=== PATIENT | male | born 1945 | race Caucasian/White ===

== ENCOUNTER 2016-09-14 22:21 | Emergency (ER) | payer MEDICARE, MEDICAID ==
[2016-09-14] MEDS ORDERED: NORMAL SALINE 1,000 ML IV ONE (23:07)
[2016-09-14] MEDS ORDERED: KETOROLAC TROMETHAMINE 30 MG/ML VIAL IV ONE (23:07)
--- NOTE | 2016-09-14 23:10 | ERNOTE ---
ER Male HPI Date of Service: 09/14/16 Stated Complaint: KIDNEY STONES Time Seen by Provider: 09/14/16 23:04 Source: patient Immunizations: IMMUNIZATION HX Immunizations Up to Date Yes Allergies/Adverse Reactions: Allergies tamsulosin HCl [From Flomax] Adverse Reaction (Intermediate, Verified 09/14/16 22:30) n/v, passes out Home Medications: HOME MEDICATIONS Doxazosin Mesylate 2 mg PO DAILY 03/24/13 [Last Taken 05/04/13] Finasteride [Proscar] 5 mg PO DAILY 03/24/13 [Last Taken 05/04/13] Levothyroxine Sodium [Synthroid] 75 mcg PO DAILY 03/31/13 [Last Taken 05/04/13] Aspirin 325 mg PO DAILY 05/04/13 [Last Taken 05/04/13] Ciprofloxacin HCl [Cipro] 500 mg PO BID #10 tablet 05/06/13 [Last Taken Unknown] Doxazosin Mesylate 8 mg PO DAILY #30 tablet 05/06/13 [Last Taken Unknown] Polyethylene Glycol 3350 [Miralax] 119 gm PO DAILY PRN #0 btl 05/06/13 [Last Taken Unknown] Cephalexin Monohydrate [Keflex] 500 mg PO QID #40 cap 08/23/14 [Last Taken Unknown] HYDROcodone/ACETAMINOPHEN [[place] 5-325] 1 tab PO Q4H PRN #40 tab 08/23/14 [Last Taken Unknown] HYDROcodone/ACETAMINOPHEN [Lortab 7.5-325 mg Tablet] 1 each PO Q6H PRN #10 tablet 09/15/16 [Last Taken Unknown] - History of Present Illness Narrative: R. FLANK PAIN TONIGHT WITH DRIBBLING OF URINE THAT REMINDS HIM OF PAST EPISODES OF KIDNEY STONES. NO FEVER. NO VOMITING. DID NOT TAKE ANYTHING AT HOME FOR THE DISCOMFORT. Review of Systems - Review of Systems Constitutional: Present: See HPI EYE: Present: no symptoms reported ENT: Present: no symptoms reported Respiratory: Present: no symptoms reported Cardiology: Present: no symptoms reported Gastrointestinal/Abdominal: Present: no symptoms reported Genitourinary: Present: See HPI, pain Musculoskeletal: Present: no symptoms reported Skin: Present: no symptoms reported Neurological: Present: no symptoms reported Endocrine: Present: no symptoms reported Hematologic/Lymphatic: Present: no symptoms reported Psych: Present: no symptoms reported All Other Systems: All systems neg except as marked - Patient's Past Medical History Patient History - Medical: Kidney stone, Obesity, Other - INCIDENTAL CHOLELITHIASIS ON 2013 CT FOR LEFT URETERAL STONE WITH BILATERAL INTRA RENAL NON -OBSTRUCTING STONES. Patient History - Cardiac/Respiratory: Hypertension, Hyperlipidemia Patient History - Cancer: No Hx of Cancer Patient History - Surgical Procedures: Appendectomy, Total Knee Replacement Patient History - Other: None - Social History Living Situations: alone Psych History: No pertinent hx Smoking Status: Former smoker - Immunizations Immunizations Up to Date: Yes Physical Exam - Physical Exam General Appearance: Present: wd/wn, alert, no apparent distress - VERY OBESE MAN WITH NAD. Respiratory: Present: no respiratory distress, normal breath sounds, no accessory muscle use, chest nontender, lungs clear Cardiovascular/Chest: Present: regular rate, rhythm, no murmur, normal peripheral pulses Gastrointestinal/Abdominal: Present: normal bowel sounds, nontender, soft, no organomegaly Back Exam: Present: normal inspection, normal range of motion, no vertebral tenderness, CVA tenderness (R) - MILD Neurological Exam: Present: alert, oriented ED Progress - Results and Orders Patient's Lab Results:: I have reviewed the patient's lab results. Results and Orders: CBC AND BMP WNL WITH GLUC 143. AWAITNG URINE. - Vital Signs Patient's Vital Signs:: I have reviewed the patient's vital signs. Vital Signs: Vital Signs 09/14/16 09/14/16 22:22 22:58 Temperature 36.9 C Pulse Rate 87 82 Respiratory 16 18 Rate Blood Pressure 194/104 136/77 O2 Sat by Pulse 99 97 Oximetry - CT/Ultrasound CT/Ultrasound Narrative: PER ARGUS - CT ABD/PEL WITHOUT CONTRAST = 0.65 CM PROXIMAL RIGHT URETERAL CALCULUS WITH RIGHT URETERECTASIS AND PELVOCALIECTASIS . ALSO BILATERAL NON OBSTRUCTING RENAL CALCULI. - Progress/Reassessment Chief Complaint: Genitourinary Problem Plan - Plan Plan: [address] GODLMAN, [facility] , TO ARRANGE FOLLOW UP BUT NO RESPONSE. PT STATES HE STILL CAN NOT GIVE A URINE. Departure Clinical Impression: Acute flank pain - Departure Disposition: Home Follow Up Needed Condition: Good Instructions: Kidney Stones, [id number] Additional Instructions: FOLLOW UP WITH YOUR UROLOGIST , CALL TOMORROW TO ARRANGE APPOINTMENT FOR RECHECK AND YOU HAVE A LARGE STONE WITH OBSTRUCTION YOU MAY NEED INTERVENTION FROM THE UROLOGIST YOU HAVE HAD IN THE PAST. Referrals: Leandro Galvez DO [Primary Care Provider] - Prescriptions: HYDROcodone/ACETAMINOPHEN [Lortab 7.5-325 mg Tablet] 1 each PO Q6H PRN #10 tablet PRN Reason: Pain
[2016-09-14] MEDS ORDERED: KETOROLAC TROMETHAMINE 30 MG/ML VIAL ONE (23:12)
--- OUTSIDE RECORDS SUMMARY | 2016-09-14 23:13 | XMS REPORT | Continuity of Care Document ---
:1945 Author Organization [facility] ([facility] Address [place] [address] Phone [phone] Care Team Providers Name Role Phone Leandro Galvez Primary Care Provider [phone] Source Comments This disclosure is being made pursuant to the Care Everywhere program, applicable federal and state laws, and may not contain all informaitonavailable regarding this patient.[facility] ([facility]) Active Allergies and Adverse Reactions Allergen Noted Date Severity Reactions Comments Tamsulosin Hcl 09/24/2014 Unknown Current Medications Prescription Sig. Disp. Refills Start Date End Date Status aspirin 325 mg tablet Take 1 Tab by 10/07/2013 Active mouth daily doxazosin 8 mg tablet Take 1 Tab by 10/09/2013 Active mouth daily levothyroxine 88 mcg Take 1 Tab by 10/07/2013 Active tablet mouth daily metoPROLol succinate 50 Take 1 Tab by 05/03/2014 Active mg XL tablet mouth daily furosemide 40 mg tablet Take 1.5 tablets 135 tablet 3 09/08/2015 Active (60 mg total) by mouth daily. 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 Temperature 35.9 C (96.6 F) 08/03/2015 8:15 AM CDT Respiratory Rate 16 08/03/2015 11:29 AM CDT Height 1.778 m (5' 10") 03/07/2016 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 Weight 187.336 kg (413 lb) 03/07/2016 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 Body Mass Index 59.26 03/07/2016 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 Oxygen Saturation 97% 08/03/2015 1:46 PM CDT Plan of Care Date Type Specialty Providers Description 09/19/2016 Appointment [facility] Robin Mcbride, Chief Comp: Patient MD Reported Reason For [address] [place] [address] [phone] (Fax) Health Maintenance Due Date Last Done Comments HCV Screening 1945 Hepatitis B Vaccine (1 of 3 - Primary Series) 1945 Tdap Vaccine 1957 Lipid Disorder Screening 1964 Td Vaccine 1964 Colonoscopy 12/18/1996 Prostate Cancer Screening 1996 Zoster Vaccine 2006 Pneumococcal Vaccine (1 of 2 - PCV13) 12/20/2011 Influenza Vaccine: Seasonal (Season Ended) 2016 Results from Last 3 Months Not on file
[2016-09-14 23:26] LABS: Hematocrit 39.3 % (42.0-52.0); Hemoglobin 12.8 gm/dL (13.5-18.0); Mean Cell Volume 84.2 fl (78-100); Mean Corpuscular Hemoglobin 27.4 pg (27-31); Mean Corpuscular Hgb Conc 32.6 g/dl (32-36); Mean Platelet Volume 9.9 fl (6.0-9.5); Neutrophil # 4.8 K/mm3 (1.3-6.0); Neutrophil % 59.6 % (42-75.0); Platelet Count 215 K/mm3 (150-450); Red Blood Count 4.67 M/mm3 (4.7-6.0); Red Cell Distribution Width 13.8 % (11.5-14.0); White Blood Count 8.1 K/mm3 (4.0-10.5)
[2016-09-14 23:36] LABS: Anion Gap 7.9 mmol/L (6.8-13.8); BUN/Creatinine Ratio 13.6 (9.0-21.6); Calcium * 8.6 mg/dL (7.9-10.9); Carbon Dioxide 31.8 mmol/L (24-32.6); Estimated Creat Clear 61.2; Potassium 3.7 mmol/L (3.4-4.6)
[2016-09-15 01:56] VITALS: BP 163/88
== END 2016-09-15 02:16 | disposition home or self-care (01) ==
LOC: ER 22:21
DX: N20.2 Calculus of kidney with calculus of ureter (principal); Z87.442 Personal history of urinary calculi; N13.4 Hydroureter

== ENCOUNTER 2016-09-19 11:24 | Day surgery (SDC) | payer MEDICARE, MEDICAID ==
[~2016-09-19 11:24] MED LIST: MORPHINE SULFATE 2 MG/ML DISP.SYRIN IV PRN; NORMAL SALINE 1,000 ML IV PRN; OXYBUTYNIN CHLORIDE 5 MG TABLET PO PRN; ceFAZolin SODIUM 2 GM in DEXTROSE 5 % IN WATER 50 ML IV PRN; oxyCODONE HCL/ACETAMINOPHEN 1 TAB TABLET PO PRN
--- OUTSIDE RECORDS SUMMARY | 2016-09-19 11:28 | XMS REPORT | Continuity of Care Document ---
:1945 Author Organization [facility] ([facility]) Address [place] [address] Phone [phone] Care Team Providers Name Role Phone Leandro Galvez Primary Care Provider [phone] Source Comments This disclosure is being made pursuant to the Care Everywhere program, applicable federal and state laws, and may not contain all informaitonavailable regarding this patient.[facility] ([facility]) Active Allergies and Adverse Reactions Allergen Noted [...] Active (60 mg total) by mouth daily. atorvastatin 40 mg Take 40 mg by 08/02/2016 Active tablet mouth daily. Active Problems Problem Noted Date Diastolic dysfunction 09/07/2015 CAD in [place] artery 03/24/2014 Overview: LAD Promus 3.5 x 16 mm RODRIGUEZ in 2013 Essential (primary) hypertension 03/10/2014 Morbid obesity 10/07/2013 Most Recent Encounters Date Type Specialty Providers Description 09/19/2016 Office Visit [facility] and V[facility] Robin Mcbride, Dx: CAD in [place] MD artery (Primary Dx) Social History Tobacco Use Types Packs/Day Years Used Date Former Smoker Pipe Tobacco Cessation:Counseling Given: Yes Comments: Last Filed Vital Signs Vital Sign Reading Time Taken Blood Pressure 140/70 09/19/2016 10:25 AM CDT Pulse 78 09/19/2016 10:25 AM CDT Temperature 35.9 C (96.6 F) 08/03/2015 8:15 AM CDT Respiratory Rate 18 09/19/2016 10:25 AM CDT Height 1.778 m (5' 10") 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
--- NOTE | 2016-09-19 15:27 | OR ---
Operative Report - Dictated Report Narrative: Location: Main OR Anesthesia: General Surgeon: Dr. Troy Preoperative diagnosis: Right ureteral stone(s) Postoperative diagnosis: Same, nonspecific urethritis likely related to hygiene , uncircumcised state, body habitus. Procedure: #1 Cystoscopy with aspiration for culture and right retrograde pyelogram #2 Right right stone manipulation without removal and placement of 7 by multi length double-J stent Indications: 70-year-old morbidly obese male with history of nephrolithiasis. Presented with right stone unable to pass despite conservative measures. Discussed options and elected to proceed with above-mentioned procedure. Description: Consent obtained. Patient brought to the operating room where general endotracheal anesthesia was induced. Placed in the dorsal lithotomy position. Prepped and draped. Timeout taken. Patient uncircumcised with very poor hygiene. Rigid scope introduced in the urethra navigated proximally. Entire urethra has a nonspecific blanching/urethritis likely related to hygiene/colonization. 21 [place] sheath navigated proximally however urethra a little snug. I was able to enter bladder required significant downward deflection. Length of scope an issue secondary to body habitus. I was able to enter bladder and quick cystoscopy was carried out with both 30 and 70 lenses. He definitely has some diverticula in the bladder as well as some obstructive change, capacity appears decreased, her was some nonspecific debris in the bladder as well. No obvious tumor however no way to clear for certain again secondary to body habitus and scope length limitations. Aspiration obtained sent for culture. Right retrogrades obtained and interpreted by Dr. Young Right ureter identified intubated with 5 [place] catheter using an angled Glidewire to get into the ureter and right retrograde obtained. Distal ureter without obvious filling defect, with some focal dilation in the area of the pelvic vessels but no filling defect. Mid and proximal ureter appeared normal until the proximal ureter were shadowing filling defect system with probable location of Stone showed up. Of note his body habitus and the field of vision with fluoroscopy and some obscuring secondary to table artifact made this very tricky. Other issue here is ureteric orifice was very narrow. I went ahead placed a Super Stiff wire and initially met resistance in the area where the stone appeared proximally. As I navigated the 5 [place] catheter [place] I was able to get the wire past the stone is some give likely manipulation of stone up into the renal pelvis. There was prompt drainage of hydronephrotic urine with debris. Given the fluoroscopic/anatomic difficulties, the possibility of infection and the patient's body habitus I elected to simply stent. Over Super Stiff wire 7 by multi length stent was deployed. I again could not see the proximal curl well because of the table artifact portable fluoroscopy. This is a very difficult case with portable fluoroscopy. Stent was appropriately positioned in the bladder with stent grasping forceps. Prostatic urethra truthfully was not obstructing appearing but definitely the bladder has obstructive change. Again I think his body habitus or possibly stricturing has something to do with that. Specimen: Bladder aspiration for culture EBL: 0 ml Condition: tolerated procedure Important findings: Urethral narrowing from likely colonization secondary to uncircumcised state and body habitus. I doubt it is clinically significant. Heavy obstructive change in the bladder with decreased capacity but smaller prostate. Possible infection/colonization. Successful right-sided manipulation with 7 Pal[place] stenting. Follow-up: We'll proceed next week with definitive management. Given difficulties would like to use my fluoroscopic table in [place] as I think I will be able to see a bit better than I was able to today. He is not an easy case because of body habitus.
[2016-09-19 17:05] VITALS: BP 161/86
== END 2016-09-19 11:25 | disposition home or self-care (01) ==
LOC: AMB 11:24
PROVIDERS: ATTEND Urology
PROC: 0WHR8YZ Insertion of Other Device into Genitourinary Tract, Via Natural or Artificial Opening Endoscopic (ICD-10-PCS; 2016-09-19)
PROC: 0T9B8ZX Drainage of Bladder, Via Natural or Artificial Opening Endoscopic, Diagnostic (ICD-10-PCS; 2016-09-19)
PROC: 0T768DZ Dilation of Right Ureter with Intraluminal Device, Via Natural or Artificial Opening Endoscopic (ICD-10-PCS; principal; 2016-09-19 16:35)
DX: N20.1 Calculus of ureter (principal); E66.01 Morbid (severe) obesity due to excess calories; Z68.43 Body mass index [BMI] 50.0-59.9, adult

== ENCOUNTER 2016-10-03 11:38 | Day surgery (SDC) | payer MEDICARE, MEDICAID ==
[~2016-10-03 11:38] MED LIST changes: -MORPHINE SULFATE 2 MG/ML DISP.SYRIN IV PRN; -OXYBUTYNIN CHLORIDE 5 MG TABLET PO PRN; -ceFAZolin SODIUM 2 GM in DEXTROSE 5 % IN WATER 50 ML IV PRN; -oxyCODONE HCL/ACETAMINOPHEN 1 TAB TABLET PO PRN
[2016-10-03] MEDS ORDERED: LIDOCAINE HCL 10 APPL CARTRIDGE TP ONE (12:57)
--- NOTE | 2016-10-03 13:06 | OR ---
Operative Report - Dictated Report Narrative: Location: Main or Preoperative diagnosis: Indwelling stent Postoperative diagnosis: Same Anesthesia: Lidocaine jelly per urethra Procedure: Flexible cystoscopy with stent removal Indications: Indwelling stent Descritpion: Consent obtained. Patient prepped and drapped. Lidocaine jelly used to anesthetize urethra. Flexible scope inserted and navigated to bladder. Stent identified, grasped and pulled per urethra. Patient tolerated. EBL: 0 ml Specimen: None Condition: Tolerated procedure Follow-up: I will see him back in 4 months with a KUB/UA/creatinine to monitor stones on opposite side. Levaquin 7501 today, finish prescription as prescribed. Call if trouble
[2016-10-03 13:20] VITALS: BP 163/78
[2016-10-03] MEDS ORDERED: LEVOFLOXACIN 750 MG TABLET PO ONE ×2 (13:20→14:00)
== END 2016-10-03 11:39 | disposition home or self-care (01) ==
LOC: AMB 11:38
PROVIDERS: ATTEND Urology
PROC: 0TP98DZ Removal of Intraluminal Device from Ureter, Via Natural or Artificial Opening Endoscopic (ICD-10-PCS; principal; 2016-10-03 13:45)
DX: Z46.6 Encounter for fitting and adjustment of urinary device (principal); Z68.43 Body mass index [BMI] 50.0-59.9, adult